=== PATIENT | female | born 1950 | race Caucasian/White ===

== ENCOUNTER → 2024-03-19 08:22 | Outpatient (REF) | payer MEDICARE, OTHER, SELFPAY | LOC: WDC 08:22 | PROVIDERS: ATTENDING PHYSICIAN Obstetrics & Gynecology; FAMILY PHYSICIAN Family Medicine | DX: Z12.31 Encounter for screening mammogram for malignant neoplasm of breast (principal) | CPT/HCPCS: 77063; 77067 ==

== ENCOUNTER → 2024-04-17 11:26 | Outpatient (REF) | payer MEDICARE, OTHER, SELFPAY ==
[2024-04-17 12:27] LABS: Hemoglobin 14.5 g/dL (12.0-16.0); Mean Corpuscular Hgb 30.1 pg (27.0-31.0); Mean Corpuscular Volume 91.3 fL (81.0-99.0); Mean Platelet Volume 10.2 fL (7.4-10.4); Platelet Count 164 10^3/uL (130-400); Red Blood Cell Count 4.82 10^6/uL (4.20-5.40); Red Cell Dist. Width 13.4 % (11.5-14.5); White Blood Cell Count 9.3 10^3/uL (4.8-10.8)
[2024-04-17 12:30] LABS: ALT (SGPT) 30 U/L (0-35); AST (SGOT) 30 U/L (14-36); Albumin 4.5 g/dl (3.5-5.0); Alkaline Phosphatase 67 U/L (38-126); Blood Urea Nitrogen 19 mg/dl (7-17); Calcium 9.9 mg/dl (8.4-10.2); Carbon Dioxide 28 mmol/L (22-30); Chloride 102 mmol/L (98-107); Glucose 94 mg/dl (70-99); HDL Cholesterol 50 mg/dl; LDL Cholesterol, Calculated 93 mg/dl; Potassium 4.2 mmol/L (3.5-5.1); Sodium 137 mmol/L (135-145); Total Bilirubin 0.7 mg/dl (0.2-1.3); Total Cholesterol 162 mg/dl (50-199); Total Protein 7.1 g/dl (6.3-8.2); Triglyceride 97 mg/dl (10-149); Very Low Density Lipoprotein 19 mg/dl (0-30); eGFR > 60.00
[2024-04-17 14:16] LABS: Glycohemoglobin (HgbA1c) 5.6 % (4.0-5.6)
[2024-04-17 15:00] LABS: Band Neutrophils 0 % (0-3); Lymphocytes 64 % (20-51)
[2024-04-17 15:01] LABS: Atypical Lymphocytes 10 %; Monocytes 3 % (2-9); Platelets Checked Yes
[2024-04-17 15:02] LABS: Absolute Neutrophils -Man Diff 2.1 10^3/uL (1.4-6.5); Normal RBC Morphology Yes; Segmented Neutrophils 23 % (42-75); Total Cells Counted 100
== END ==
LOC: REG 11:26
PROVIDERS: ATTENDING PHYSICIAN Family Medicine
DX: R73.9 Hyperglycemia, unspecified (principal); E66.01 Morbid (severe) obesity due to excess calories; Z68.41 Body mass index [BMI] 40.0-44.9, adult; Z13.1 Encounter for screening for diabetes mellitus; Z13.220 Encounter for screening for lipoid disorders; M85.89 Other specified disorders of bone density and structure, multiple sites; R53.82 Chronic fatigue, unspecified; E87.5 Hyperkalemia
CPT/HCPCS: 36415; 80053; 80061; 83036; 85025

== ENCOUNTER 2024-12-13 21:19 | Inpatient (IN) | payer MEDICARE, OTHER, SELFPAY ==
[2024-12-13] VITALS (7 sets, daily range): BP systolic 104–190; BP diastolic 56–121; BMI 38.8
--- NOTE | 2024-12-13 19:42 | EDRN ---
Pt having pain R flank that started around 1330 that is intermittent. Sometimes wraps around to abdomen. No hx similar pain or kidney stones. No pain medication taken. Pt vomited approximately 5-6 times. No nausea now. Pt had chills at home,
did not take her temp. No cough, cp, sob, d/c. Pt notes itching when she urinates and says she went to Dr Coronado regarding this issue and has an appointment with a urogynecologist.
[2024-12-13] MEDS: NSS 1000 IV (19:50)
[2024-12-13 19:56] LABS: Hematocrit 46.4 % (37.0-47.0); Hemoglobin 15.3 g/dL (12.0-16.0); Mean Corp Hgb Conc. 33.0 g/dL (33.0-37.0); Mean Corpuscular Volume 91.5 fL (81.0-99.0); Nucleated Red Blood Cells % 0 %; Platelet Count 114 10^3/uL (130-400); Red Cell Dist. Width 13.6 % (11.5-14.5)
[2024-12-13] MEDS: ZOFRAN 4 MG IV (20:00)
[2024-12-13] MEDS: TORADOL 15 MG IV (20:01)
--- NOTE | 2024-12-13 20:03 | ED.GENMED ---
History of Present Illness
General
Chief Complaint: Flank Pain
Source: patient and spouse
Time Seen by Provider: 12/13/24 19:29
History of Present Illness
History of Present Illness:
74-year-old female presenting to the emergency department for evaluation of sudden onset right flank pain, chills, nausea and vomiting and tactile fever since approximately 2 PM today stating anytime she would go to eat or drink anything she would
proceed to vomit. Pain described to be localized to the right flank somewhat radiating towards the right lower groin area with pain being mostly constant, sharper in nature at times and without any relief although patient notes she did not take
anything for her symptoms prior to arrival. Denies any history of similar. She notes a history of previous cholecystectomy and appendectomy. Social history was otherwise noncontributory.
Past History
Past History
ED Past Medical History: None
ED Past Surgical History: Cholecystectomy, Gynecological, Orthopedic and Other
Social History
Tobacco: Non-smoker
Alcohol: None
Drug: None
Personal:
Living: with family
Review of Systems
Review of Systems
All Other Systems: ROS reviewed and negative except as documented in HPI and ROS
Phy Exam
Physical Exam
Physical Exam:
GENERAL: Alert , in no apparent distress, hot to the touch
EYE: clear conjunctiva b/l
HEAD: NCAT
ENT: o/p clr, mmm.
CARDIAC: Regular rate and rhythm .
LUNGS: Clear breath sounds bilaterally, no acute respiratory distress, no wheezes/rales/rhonchi
ABDOMEN: Soft, without focal tenderness, no r/g, right sided cvat
NEUROLOGICAL: Alert and oriented
SKIN: Warm and dry, skin intact. No rashes
MUSCULOSKELETAL: No edema, well perfused.
PSYCH: Normal and appropriate interaction.
Scores
Heart Failure Risk
Heart Failure Risk Score: Not Applicable
Heart Score for Chest Pain Patients
STEMI patient?: Not applicable
Withdrawal Assessment of Alcohol
Withdrawal Assessment Completed?: Not applicable
Sepsis
Sepsis Screening
Sepsis Assessment: Severe Sepsis
Sepsis Screening: Lactate >2mmol/L
Sepsis Screen
Sepsis Screen: Severe Sepsis
Date: 12/14/24
Time: 00:27
Course
Orders/Labs/Results
Orders:
Orders
12/13/24 Dinner
NPO
Allow oral meds: Yes
Allow clear liquids: Sips of Clears
NPO with Ice Chips: Yes
12/13/24 19:39
Complete Blood Count/With Diff Urgent
Comprehensive Metabolic Panel Urgent
Lactic Acid Q4H
Comment: ON ICE, CANCEL 2ND ORDER IF FIRST LACTIC ACID LEVEL <2
Blood Culture Q20M
ARTURO Source: Blood/Venous
Specimen Description:
Comment: Urgent from separate sites. If patient screens positive for possible sepsis
12/13/24 19:50
0.9% Sodium Chloride 1000 ml [Nss] 1,000 ml IV BOLUS
12/13/24 19:52
Ketorolac [Toradol] 15 mg IV NOW STA
Ondansetron Injectable [Zofran] 4 mg IV NOW STA
12/13/24 19:53
CT Abd/pel Without Iv Or Oral Urgent
Comment:
Reason For Exam: right flank pain, vomiting, prev appy/choley
12/13/24 20:05
Urinalysis Reflex To Culture Urgent
Date Specimen was Collected: 12/13/24
Time Specimen was Collected: 20:03
Urine Microscopic Reflex Cult Urgent
Urine Culture Urgent
ARTURO Source: U
Specimen Description:
Date Specimen was Collected: 12/13/24
Time Specimen was Collected: 20:03
12/13/24 20:12
0.9% Sodium Chloride 1000 ml [Nss] 1,600 ml IV NOW STA
12/13/24 20:22
Blood Culture Q20M
ARTURO Source: Blood/Venous
Specimen Description:
Comment: Urgent from separate sites. If patient screens positive for possible sepsis
12/13/24 20:35
CefTRIAXone [Rocephin] 1,000 mg IV NOW STA
12/13/24 20:42
Sterile Water [Sterile Water For Injection] 10 ml .ROUTE .STK-MED ONE
12/13/24 20:43
HYDROmorphone [Dilaudid] 0.5 mg IV NOW STA
12/13/24 20:49
Admit/Transfer Patient As Directed
Co-Sign Provider:
Level of Care: Inpatient admission
Assign to:: IMU- Intermediate Care
Physician / Group: Julia
Diagnosis: pyelonephritis with obstructing kidney stone
Reason for Hospitalization: pyelonephritis with obstructing kidney stone
Expected length of stay greater than two midnights?: Yes
ELOS- Estimated Length of Stay in days: 2
I certify the patient meets the requirements for IP care: Yes
12/13/24 20:50
Code Status As Directed
Resuscitation Status: Full Code
PRN Pain Medication Management As Directed
May give lesser potent ordered pain med per pt: Yes
preference::
Protocol:: Medication orders for pain may be administered in a
manner that supports deferring to patient preference
when the pt is:
- Requesting an ordered lesser potent pain medication.
Least to most potent pain medications are defined
as: acetaminophen < NSAID < tramadol < opioids
(morphine, oxycodone, hydromorphone).
- Requesting a lesser dose of the same medication IF
ORDERED.
- Requesting a less intrusive route of administration
if both routes are prescribed by the provider (PO <
IV).
12/13/24 22:41
Acetaminophen [Tylenol] 650 mg PO Q4HPRN PRN
Bisacodyl [Dulcolax] 10 mg RECTAL [id number] PRN
Docusate W/Senna [Senokot-S] 1 tablet PO BIDPRN PRN
HYDROmorphone [Dilaudid] 0.5 mg IV Q4HPRN PRN
Ketorolac [Toradol] 15 mg IV Q6HPRN PRN
Lactated Ringers [Lr] 1,000 ml IV 100 mls/hr
Ondansetron Injectable [Zofran] 4 mg IV Q6HPRN PRN
Polyethylene Glycol Powder [Miralax] 17 grams PO DAILYPRN PRN
12/13/24 22:41
Activity As Directed
Activity Level: With Assistance
Intake/ Output As Directed
Frequency: Per unit guidelines
Vital Signs As Directed
Frequency: Per unit guidelines
Pulse Ox/spot Check [RESP] Routine
Quantity: 1
Rx Incentive Spirometry [RESP] Routine
Frequency: q1h while awake
DX Deep Vein Thrombosis Video Routine
12/13/24 23:00
Lactic Acid Q4H
Comment: ON ICE, CANCEL 2ND ORDER IF FIRST LACTIC ACID LEVEL <2
12/14/24 Breakfast
Regular
At Your Request: Full Participation
Basic Metabolic Panel IN AM
Complete Blood Count/No Diff IN AM
12/14/24 18:00
Enoxaparin Sodium [Lovenox] 40 mg SC QPM
12/14/24 20:00
CefTRIAXone [Rocephin] 1,000 mg IV Q24H
Abnormal Lab Results
12/13/24 12/13/24
19:39 20:05
WBC 11.1 H 10^3/uL
(4.8-10.8)
Plt Count 114 L 10^3/uL
(130-400)
Abs Immat Gran (auto) 0.1 H 10^3/uL
(0-0.05)
Absolute Neuts (auto) 7.7 H 10^3/uL
(1.4-6.5)
Immature Gran % 1.0 H %
(0-0.5)
Monocytes % 0.6 L %
(1.7-9.3)
Chloride 109 H mmol/L
(98-107)
Carbon Dioxide 21 L mmol/L
(22-30)
BUN 19 H mg/dl
(7-17)
Glucose 171 H mg/dl
(70-99)
Lactic Acid 3.5 H mmol/L
(0.7-2.0)
Calcium 10.4 H mg/dl
(8.4-10.2)
Urine Ketones 1+ A
(Negative)
Ur Occult Blood Reflex 2+ A
(Negative)
Urine RBC 16-20 A /HPF
(0-2)
Urine Bacteria (Reflex) Many A
(Negative)
Urine Glucose 1+ A
(Negative)
Urine Albumin (Reflex) 2+ A
(Neg - Trace)
12/13/24 19:39
12/13/24 19:39
Vital Signs
Initial and Last Documented VS:
Initial Vital Signs
Temp Pulse Resp BP Pulse Ox
100.6 F H 114 26 190/121 96
12/13/24 18:52 12/13/24 18:52 12/13/24 18:52 12/13/24 18:52 12/13/24 18:52
Last Documented Vital Signs
Temp Pulse Resp BP Pulse Ox
98.6 F 102 21 103/59 95
12/14/24 00:04 12/14/24 00:00 12/14/24 00:00 12/14/24 00:00 12/14/24 00:04
MDM/Problems Addressed
Differential Diagnosis Includes:
Renal/ureteral colic
kidney stone
Pyelonephritis
cystitis
Shingles
Patient status post cholecystectomy so doubt cholelithiasis/choledocholithiasis
Pancreatitis
viral syndrome
MDM/Problems Addressed:
74-year-old female presented to the ER with sudden onset of right flank pain fevers, nausea and vomiting. Patient febrile and tachycardic here. Overall patient is fairly well-appearing. Sepsis workup initiated. Symptom control with Toradol and
Zofran as well as fluids. CT scan ordered. Disposition pending.
*Radiology
Radiology exam reviewed: radiology read reviewed
*Pulse Oximetry
SaO2: 96
Oxygen Mode of Delivery: Room air
Patient hypoxic: no
*Assignment Desk Assistant Interpretation
Rate: tachycardiac
Heart Rate: 110
Rhythm: sinus
*Critical Care Note
Total Time (30-74mins, 75-104mins- exclusive of procedures): 30
comment:
Critical care statement: A total of 30 minutes of critical care time was provided for this patient. This includes management of unstable vital signs, evaluation of the patient at bedside, reviewing the patient's pertinent medical records, discussion
with consultants, review of old EKGs and review of pertinent medical records. This time with separate from time utilized to perform the aforementioned documented procedures
Patient Management
Discussion with other providers: Hospitalist and Visual Basic Developer
Escalation/DeEscalation of care consider admission/obs:
Patient CT scan shows a 0.8 cm stone at the level of the UPJ with concern for perinephric stranding. Based off patient's presentation with fever, leukocytosis and lactic acidosis I do have concern for pyelonephritis/infected kidney stone/urosepsis.
I notified urology who will come evaluate the patient with plan to take to the OR. Advised to keep the patient NPO. Hospitalist team is aware and accepts for continued evaluation and treatment following completion of patient in the OR.
ED Attending Note
-
Portions of this chart may have been created with voice recognition software.� Occasional wrong word or��sound alike� substitutions may have occurred due to the inherent limitations of voice recognition software.
Discharge Plan
Departure
Patient Disposition: Admit
Date of Disposition: 12/13/24
Time of Disposition: 20:36
Presentation/result/management discussed w/ accepting MD/DO: Hospitalist
Discharge Problem:
Kidney stone on right side, Acute pyelonephritis
Interventions
Interventions:
*Risk Screen - Suicide Last Done: 12/13/24 18:52
*General Assessment Last Done: 12/13/24 18:52
*Neglect/Abuse Screening Last Done: 12/13/24 18:52
*ED- Fall Risk Assessment Last Done: 12/13/24 19:42
*Nursing Disposition Last Done: 12/13/24 21:55
AC-Fbwaxm-Lkbmtjqnmc Assessment Last Done: 12/13/24 19:52
ED-Female Genitourinary Assessment Last Done: 12/13/24 19:52
Discharge Date and Time
Discharge Date/Time: 12/13/24 21:55
[2024-12-13 20:16] LABS: Urine Character Clear (Clear)
[2024-12-13 20:17] LABS: ALT (SGPT) 25 U/L (0-35); AST (SGOT) 34 U/L (14-36); Albumin 5.0 g/dl (3.5-5.0); Alkaline Phosphatase 69 U/L (38-126); Blood Urea Nitrogen 19 mg/dl (7-17); Calcium 10.4 mg/dl (8.4-10.2); Carbon Dioxide 21 mmol/L (22-30); Chloride 109 mmol/L (98-107); Estimated Creatinine Clearance 53 ml/min; Glucose 171 mg/dl (70-99); Potassium 4.2 mmol/L (3.5-5.1); Sodium 141 mmol/L (135-145); Total Protein 8.1 g/dl (6.3-8.2); eGFR > 60.00
[2024-12-13 20:22] LABS: Urine Squamous Cell 0-2 /LPF (Few)
[2024-12-13 20:23] LABS: Urine Red Blood Cell 16-20 /HPF (0-2); Urine White Cell 0-2 /HPF (0-5)
[2024-12-13] MEDS: NSS 1600 ML IV (20:28)
--- NOTE | 2024-12-13 20:39 | EDRN ---
Pt informed she is now NPO, may go to OR tonight. This RN attempted second iv access without success. Scottie Lomeli RN able to insert second iv acces L ACF and second L NS moved to this site for more rapid infusion.
--- NOTE | 2024-12-13 20:42 | HPS.HSE ---
Family Physician
-
Family Physician: NOT KNOW UNKNOWN - PT DOES
Chief Complaint
-
Flank pain
History of Present Illness
This is a 74-year-old female with past medical history significant for osteoporosis, and on calcium supplementation presents to the emergency department with chills flank pain nausea vomiting.
Patient reported that she was in usual state of health up until this afternoon after having a small lunch at [employer] conference. She immediately developed some abdominal discomfort and nausea and she came home. At home she started noticing
right-sided flank pain associated with ongoing nausea and then she started having emesis that was nonbloody and nonbilious. She denies any diarrhea. Patient and spouse reported that she started to have chills which indicated that she might have a
fever. She was unable to tolerate any p.o. Any attempted sips of liquid resulted in vomiting. She reports prior history of gallstones. Denies any history of recurrent UTIs or kidney stones.
In the Emergency Department the patient had a Tmax of 100.6, blood pressure was 180/100 with a pulse of 114 and she was satting 98% on room air.
White count of 11 hemoglobin of 15.3 and plate count of 114. Her electrolytes BUN and creatinine were all normal.
CT of the abdomen pelvis shows approximate 0.8 cm calculus at the right ureteropelvic junction with right renal collecting system dilation and moderate right perinephric stranding.
Medical History
Past Medical History
Past Medical History: Reports Other
Past Surgical History: Reports Cholecystectomy, , Gynocological (Right ovarian cystectomy) and Other (Hernia repair)
Social History
Tobacco: Non-smoker
Alcohol: None
Drug: None
Family History
Family History: Not pertinent
Allergies / Home Medications
Allergies reflects when Allergies were last updated in [employer].
Home Medications with original date entered in [employer]
Allergy/Medication List:
Allergies
Allergy/AdvReac Type Severity Reaction Status Date / Time
bacitracin (From Neosporin Allergy Rash Verified 12/13/24 19:47
([id number]))
formaldehyde Allergy Unknown Verified 12/13/24 19:47
latex (Latex) Allergy 'picky Verified 12/13/24 19:47
sensation
in face'
lavender (Lavandula Allergy 'picky' Verified 12/13/24 19:47
angustifolia)
morphine Allergy Unknown Verified 12/13/24 19:47
neomycin (From Neosporin Allergy Rash Verified 12/13/24 19:47
([id number]))
polymyxin B (From Neosporin Allergy Rash Verified 12/13/24 19:47
([id number]))
Sulfa (Sulfonamide Allergy Hives Verified 12/13/24 19:47
Antibiotics)
bananas Allergy Rash Uncoded 12/13/24 19:47
Home Medications
PreserVision AREDS 1 tab PO BID 12/13/24
alendronate 70 mg tablet 70 mg PO QWEEK 12/13/24
calcium 500 mg (as carbonate)-vitamin D3 3.125 mcg (125 unit) tablet 1 tab PO DAILY 12/13/24
Review of Systems
-
Constitutional: Reports No Symptoms
EENT: Reports No Symptoms
Respiratory: Reports No Symptoms
Cardiac: Reports No Symptoms
Abdomen/GI: Reports No Symptoms
: Reports Flank Pain
Musculoskeletal: Reports No Symptoms
Skin: Reports No Symptoms
Neurological: Reports No Symptoms
Endocrine: Reports No Symptoms
Hematologic/Lymphatic: Reports No Symptoms
Psych: Reports No Symptoms
Physical Exam
Vital Signs
Vital Signs
Temp Pulse Resp BP Pulse Ox
98.7 F 114 16 190/121 96
12/13/24 20:33 12/13/24 20:33 12/13/24 20:33 12/13/24 18:52 12/13/24 20:08
Physical Exam
General: Well Developed, Well Nourished and No Apparent Distress
HEENT: NormoCephalic, Moist mucous membranes and Atraumatic
Respiratory: Clear
Cardiac: S1/S2 and Regular Rhythm; No Murmur or Rub
GI: Soft, Non Tender, Non Distended and Normal Bowel Sounds; No Organomegaly
Rectal: Deferred by Provider
Musculoskeletal: No Clubbing, No Cyanosis and No Edema
Skin: No Rash
Neuro: Nonfocal/grossly intact
Laboratory Results
-
12/13/24 19:39
12/13/24 19:39
Laboratory Results
Lactic Acid 3.5 mmol/L (0.7-2.0) H 12/13/24 19:39
Total Bilirubin 1.1 mg/dl (0.2-1.3) 12/13/24 19:39
AST 34 U/L (14-36) 12/13/24 19:39
ALT 25 U/L (0-35) 12/13/24 19:39
Alkaline Phosphatase 69 U/L (38-126) 12/13/24 19:39
Data Reviewed
-
CT Scan: Report Reviewed by me
Lab Data: Labs Reviewed by me
Old Records: Reviewed
Impression/Plan
-
IMPRESSION:
74-year-old female with right obstructing ureterolithiasis with likely infected stone and pyelonephritis with sepsis but no shock. Fever 200.6 here and tachycardic. UA with bacteria and blood but no nitrites or leukocyte esterase WBCs. She does
have mild peripheral leukocytosis.
PLAN:
Infected Urolithiasis - Sepsis without shock likely going to OR for stenting
- admit to IMU
- NPO
- blood and urine cultures sent
- IV ceftriaxone started
- s/p 30 cc/kg bolus, continue maintenance fluids for now
- can initiate regular diet after OR
- pain control, antiemetics and antipyretics
DVT PPX - lovenox starting tomorrow
Code status - Full Code
[2024-12-13] MEDS: ROCEPHIN 1000 MG IV (20:45)
[2024-12-13] MEDS: DILAUDID 0.5 MG IV (20:50)
--- NOTE | 2024-12-13 21:27 | CONS.URO ---
Consultation
-
Date/Time Consultation Requested: 12/13/24 2100
Date/Time Consultation Performed: 2127
Requesting Provider: ED
Performing Provider: Fortunato
Reason for Consultation: urosepsis, obstructing right ureteral stone
Medical History
History of Present Illness
74F presenting w/ abdominal discomfort and nausea starting this afternoon.
New onset of right flank pain w/ emesis.
Fevers and chills began later in afternoon.
Denies h/o rUTIs or nephrolithiasis.
In ED => tachycardic to 120s, WBC >11, LA 3.5, and tachypneic.
CT imaging => 8 mm right UPJ stone w/ obstructive uropathy and moderate right perinephric stranding.
Past Medical History
Past Medical History: Other (osteoporosis)
Past Surgical History: Cholecystectomy, , Gynocological (right ovarian cystectomy) and Other (hernia repair)
Social History
Tobacco: Non-smoker
Alcohol: None
Drug: None
Personal:
Living: With Family
Family History
Family History: Reviewed & Not Pertinent
Allergies/Home Medications
Allergies
Allergy/AdvReac Type Severity Reaction Status Date / Time
bacitracin (From Neosporin Allergy Rash Verified 12/13/24 19:47
([id number]))
formaldehyde Allergy Unknown Verified 12/13/24 19:47
latex (Latex) Allergy 'picky Verified 12/13/24 19:47
sensation
in face'
lavender (Lavandula Allergy 'picky' Verified 12/13/24 19:47
angustifolia)
morphine Allergy Unknown Verified 12/13/24 19:47
neomycin (From Neosporin Allergy Rash Verified 12/13/24 19:47
([id number]))
polymyxin B (From Neosporin Allergy Rash Verified 12/13/24 19:47
([id number]))
Sulfa (Sulfonamide Allergy Hives Verified 12/13/24 19:47
Antibiotics)
bananas Allergy Rash Uncoded 12/13/24 19:47
Home Medications
�Medication �Instructions �Recorded �Confirmed �Type
CoQ-10 25 mg PO QID 12/13/24 12/13/24 History
PreserVision AREDS 1 tab PO BID 12/13/24 12/13/24 History
Resq 1,250 mg PO DAILY 12/13/24 12/13/24 History
alendronate 70 mg tablet 70 mg PO QWEEK 12/13/24 12/13/24 History
calcium 500 mg (as 1 tab PO DAILY 12/13/24 12/13/24 History
carbonate)-vitamin D3 3.125 mcg
(125 unit) tablet
cholecalciferol (vitamin D3) 25 25 mcg PO DAILY 12/13/24 12/13/24 History
mcg (1,000 unit) tablet (Vitamin
D3)
cranberry fruit 450 mg tablet 900 mg PO DAILY 12/13/24 12/13/24 History
(cranberry)
cdeljykwxihr-jzoqppxs-xjnwgq tablet 1 tab PO DAILY 12/13/24 12/13/24 History
red yeast rice 600 mg tablet 2,400 mg PO DAILY 12/13/24 12/13/24 History
Review of Systems
-
History Source: Patient and Family
A 12 point Review of Systems was completed except as noted: Yes
Physical Exam
Vital Signs
Vital Signs
Temp Pulse Resp BP Pulse Ox
98.7 F 109 26 115/70 96
12/13/24 20:33 12/13/24 21:00 12/13/24 21:00 12/13/24 21:00 12/13/24 20:08
Lab / Testing Results
Laboratory Results
12/13/24 19:39
12/13/24 19:39
Physical Exam
General: Well Developed and Well Nourished
HEENT: Normocephalic and Anicteric
Respiratory: Non Labored Respirations
Cardiac: Regular Rhythm
Breast: Deferred by me
GI: Soft, Non Tender and Non Distended
Rectal: Deferred by Provider
Genito-urinary: Clear Urine
Musculoskeletal: No Edema
Skin: Warm and Dry
Neuro: AO x 3, No Motor Deficits and Nonfocal/Grossly Intact
Hematologic/Lymphatic: No Lymphadenopathy
Psych: Calm and Intact Judgement
Assessment / Plan
-
Urosepsis - evolving
Fevers
Obstructing right UPJ stone
VS: tachycardic, tachypneic
WBC 11.1
Cr WNL
LA 3.5
UA +RBCs, many bacteria
CTAP w/o IV contrast => obstructing 8 mm right UPJ stone w/ hydronephrosis and perinephric stranding
Detailed discussion including SDM had w/ patient and spouse regarding clinical picture of urosepsis w/ obstructive uropathy.
Reviewed risks, benefits, alternatives, and potential complications of cystoscopy/stent placement including but not limited to bleeding, ureteral/bladder injury, need for additional emergent procedures/surgeries.
- To OR emergently for cytso + right stent placement
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
- Surgical consent to be signed in preop holding
- IMU bed available post-op per Hospitalist
D/w patient and spouse.
D/w ED.
D/w Hospitalist.
Data Reviewed
-
Total Time Spent with Patient (in minutes): 25
CT Scan: Image personally visualized and interpreted, Report Reviewed by Me, Discussed with Physician, Discussed with Patient and Discussed with Family
Lab Data: Labs Reviewed, Discussed with Physician, Discussed with Patient and Discussed with Family
Old Records: Reviewed
--- NOTE | 2024-12-13 21:44 | EDRN ---
Report given to OR
--- NOTE | 2024-12-13 22:29 | W.IMMPOSTOP ---
Surgical Immed Post Op Note
-
Primary Surgeon: Fortunato
Pre-op Diagnosis: Urosepsis, obstructing right UPJ stone
Post-op Diagnosis: Same
Procedure Performed: cystoscopy, right RGP + stent placement
Anesthesia Type: LMA
Specimen / Cultures: Right kidney UCx/None
Estimated Blood Loss: Negligible
Drains: 6Fr x 22 cm JJ right ureteral stent
Complications: None
Operative Findings:
Brisk efflux of malodorous purulent urine from right UO upon wire decompression and stent placement - intraop UCx sent from right kidney.
Final KUB and cystoscopy confirming excellent stent positioning.
Spouse (Haviland) updated post-op.
[2024-12-13] MEDS: LR 1000 IV (23:39)
[2024-12-14] VITALS (14 sets, daily range): BP systolic 90–143; BP diastolic 52–73; BMI 27.4; BMI 27.6
--- NOTE | 2024-12-14 00:57 | PTCARENOTE ---
verbal report received from YEVGENIY Woody. Pt arrived via bed from PACU with at bedside. Pt aaox3. sinus tach on monitor, hr 100-110s. SpO2 95% on RA. admission complete. VS and assessment as documented. LR infusing @ 100 mL/hr. Pt resting in
bed with call herrera in reach.
[2024-12-14 05:16] LABS: Hematocrit 39.2 % (37.0-47.0); Hemoglobin 12.7 g/dL (12.0-16.0); Mean Corp Hgb Conc. 32.4 g/dL (33.0-37.0); Mean Corpuscular Volume 92.0 fL (81.0-99.0); Platelet Count 106 10^3/uL (130-400); Red Cell Dist. Width 13.9 % (11.5-14.5)
[2024-12-14 05:39] LABS: Blood Urea Nitrogen 19 mg/dl (7-17); Calcium 8.9 mg/dl (8.4-10.2); Carbon Dioxide 22 mmol/L (22-30); Chloride 113 mmol/L (98-107); Estimated Creatinine Clearance 62 ml/min; Glucose 139 mg/dl (70-99); Potassium 4.0 mmol/L (3.5-5.1); Sodium 140 mmol/L (135-145); eGFR > 60.00
--- NOTE | 2024-12-14 06:50 | W.PN.URO.CBU ---
Today's Communication / Plan
-
Continue IV antibiotics pending Cx S/S
Plan for definitive outpatient stone surgery in 2-3 weeks
D/w spouse (Vick).
Assessment / Plan
-
Urosepsis
Right pyonephrosis
Obstructing right UPJ stone
12/13: s/p emergent cysto + right RGP/stent placement
WBC 32 (as expected s/p decompression of infected right renal collecting system)
Cr WNL
UCx pending
BCx pending
Diagnosis
-
Date of Service: December 14, 2024
-
Patient Diagnosis:
Urosepsis
Right pyonephrosis
Obstructing right UPJ stone
Post Op Day:
12/13: s/p emergent cysto + right RGP/stent placement
Subjective
-
Voiding w/o difficulty.
Advanced to regular diet post-op.
Objective
-
Vital Signs
Temp Pulse Resp BP Pulse Ox
98.4 F 90 16 96/55 93
12/14/24 03:23 12/14/24 06:00 12/14/24 06:00 12/14/24 06:00 12/14/24 06:00
Intake and Output
12/13/24 12/14/24 12/15/24
06:59 06:59 06:59
Intake Total 1380 / 1380
Balance 1380 / 1380
Intake:
Oral fluids 480 / 480
IV fluids (Total) 900 / 900
normosol 200 / 200
Other:
Number of approximated MODERATE 1
amounts of urine
Laboratory Results
12/14/24 04:52
12/14/24 04:52
Physical Exam
-
General - well developed, well nourished, no acute distress
Abdomen - soft, non-tender, no CVAT
Skin - warm & dry with no rash
Neuro - AOx3, no motor deficits
Extremities - no clubbing, no cyanosis, no edema
Care Review
Data Reviewed
Discussed with: Hospitalist and Family
CT Scan: Report Pers Reviewed and Image Pers Reviewed
Total Time Spent with Patient (in minutes): 25
--- NOTE | 2024-12-14 09:43 | W.PN.HOSP.TC ---
Addendum entered and electronically signed by Dean Yoo MD 12/14/24 09:44:
#reactive thrombocytopenia
follow CBC
Original Note:
Today's Communication/Plan
-
see PN
Assessment / Plan
Assessment / Plan
74yo F with PMHx of osteoporosis, HLD came with R flank pain, nausea and vomiting with burning during urination started on the day of admisison, CT abd showed 0.8 cm calculus at the right ureteropelvic junction and R pyelonephritis, had
A/P:
#Sepsis on admission (leukocytosis, nausea, vomiting) 2/2 pyelonephritis complicated by bacteremia with UPJ obstructing stone
Ceftriaxone, pending Ucx
repeat Bcx
Urology: s/p cystoscopy, right RGP + stent placement on 12/14/24 - purulent output from kidney
Pain mgmt
#Diverticulosis w/o diverticulitits
#moderate umbilical hernia
#simple parapelvic renal cysts
high fiber diet
outpatient f/u with PCP
DVT ppx lovenox
Full code
I have spent at least 57min reviewing chart, test results, communication with consultants and family and providing direct patient care
Anticipated Discharge: 24 - 48 hours
Subjective/Interval History
-
Date of Service: December 14, 2024
Objective Data
-
Labs:
Laboratory Results
12/14/24
04:52
WBC 32.2 H
Hgb 12.7
Hct 39.2
Plt Count 106 L
Sodium 140
Potassium 4.0
Chloride 113 H
Carbon Dioxide 22
BUN 19 H
Creatinine 0.9
Glucose 139 H
Calcium 8.9 D
Vital Signs:
Vital Signs
Temp Pulse Resp BP Pulse Ox
98.4 F 94 19 117/67 96
12/14/24 03:23 12/14/24 08:00 12/14/24 08:00 12/14/24 08:00 12/14/24 08:00
I&O
12/13/24 12/14/24 12/15/24
06:59 06:59 06:59
Intake Total 1380 / 1380
Balance 1380 / 1380
Review of Systems
-
History Source: Patient
All other systems: Reviewed and negative
Genitourinary: Reports Dysuria
Physical Exam
-
General: No Apparent Distress and Comfortable
HEENT: Normocephalic
Respiratory: Clear to Auscultation
Cardiac: Regular Rhythm
GI: Soft, Nontender and Nondistended
Genito-urinary: No Costovertebral Tender
Neuro: Awake, Alert, Oriented and AO x 3
Psych: Calm
[2024-12-14] MEDS: LR 1000 IV (11:32)
--- NOTE | 2024-12-14 12:04 | PTCARENOTE ---
Patient AOx3. VSS. NSR on monitor. R ureteral stent. Urinating appropriately. Tolerating oral diet. Independent in room. IVF running per order. Call herrera within reach, bed in lowest position, and bed of wheels locked.
--- NOTE | 2024-12-14 13:26 | PTCARENOTE ---
Verbal report given to 3W RN Saige. Patient transported via patient transport. Patient belongings transferred with patient.
[2024-12-14] MEDS: STERILE WATER FOR INJECTION 10 ML IV (19:33)
[2024-12-14] MEDS: FLUSH (NSS) 1 FLUSH IV (19:34)
[2024-12-14] MEDS: ROCEPHIN 1000 MG IV (19:34)
[2024-12-15 06:14] LABS: ALT (SGPT) 24 U/L (0-35); AST (SGOT) 22 U/L (14-36); Albumin 3.4 g/dl (3.5-5.0); Alkaline Phosphatase 56 U/L (38-126); Blood Urea Nitrogen 24 mg/dl (7-17); Calcium 8.7 mg/dl (8.4-10.2); Carbon Dioxide 24 mmol/L (22-30); Chloride 112 mmol/L (98-107); Estimated Creatinine Clearance 62 ml/min; Glucose 93 mg/dl (70-99); Potassium 4.0 mmol/L (3.5-5.1); Sodium 142 mmol/L (135-145); Total Protein 5.8 g/dl (6.3-8.2); eGFR > 60.00
[2024-12-15 06:25] LABS: Hematocrit 38.6 % (37.0-47.0); Hemoglobin 12.4 g/dL (12.0-16.0); Mean Corp Hgb Conc. 32.1 g/dL (33.0-37.0); Mean Corpuscular Volume 91.9 fL (81.0-99.0); Platelet Count 118 10^3/uL (130-400); Red Cell Dist. Width 14.3 % (11.5-14.5)
[2024-12-15 07:33] VITALS: BP 132/73
[2024-12-15 08:42] LABS: Absolute Neutrophils -Man Diff 18.3 10^3/uL (1.4-6.5); Normal RBC Morphology Yes; Platelets Checked Yes
[2024-12-15 08:43] LABS: Total Cells Counted 100
[2024-12-15] MEDS: ROCEPHIN 1000 MG IV (10:03)
[2024-12-15] MEDS: STERILE WATER FOR INJECTION 10 ML IV (10:03)
--- NOTE | 2024-12-15 10:23 | W.PN.HOSP.TC ---
Today's Communication/Plan
-
pending improvement in leukocytosis
Increase Rocephin to 2g
Assessment / Plan
Assessment / Plan
74yo F with PMHx of osteoporosis, HLD came with R flank pain, nausea and vomiting with burning during urination started on the day of admisison, CT abd showed 0.8 cm calculus at the right ureteropelvic junction and R pyelonephritis, had
A/P:
#Sepsis on admission (leukocytosis, nausea, vomiting) 2/2 pyelonephritis complicated by bacteremia with UPJ obstructing stone
Ceftriaxone, pending Ucx
repeat Bcx NTD
Urology: s/p cystoscopy, right RGP + stent placement on 12/14/24 - purulent output from kidney
Pain mgmt
#Diverticulosis w/o diverticulitis
#moderate umbilical hernia
#simple parapelvic renal cysts
high fiber diet
outpatient f/u with PCP
DVT ppx lovenox
Full code
I have spent at least 57min reviewing chart, test results, communication with consultants and family and providing direct patient care
Anticipated Discharge: 24 - 48 hours
Subjective/Interval History
-
Date of Service: December 15, 2024
Objective Data
-
Labs:
Laboratory Results
12/15/24
05:09
WBC 30.1 H
Hgb 12.4
Hct 38.6
Plt Count 118 L
Sodium 142
Potassium 4.0
Chloride 112 H
Carbon Dioxide 24
BUN 24 H
Creatinine 0.9
Glucose 93
Calcium 8.7
Total Bilirubin 0.4
AST 22
ALT 24
Alkaline Phosphatase 56
Vital Signs:
Vital Signs
Temp Pulse Resp BP Pulse Ox
98.0 F 87 17 132/73 97
12/15/24 07:33 12/15/24 07:33 12/15/24 07:33 12/15/24 07:33 12/15/24 07:33
I&O
12/14/24 12/15/24 12/16/24
06:59 06:59 06:59
Intake Total 1380 / 1380 2220 / 2220
Balance 1380 / 1380 2220 / 2220
Review of Systems
-
History Source: Patient
All other systems: Reviewed and negative
Physical Exam
-
General: No Apparent Distress
Neuro: Awake, Alert, Oriented and AO x 3
Psych: Calm
--- NOTE | 2024-12-15 10:54 | CM ---
Addendum entered by Radha Taveras 12/15/24 10:56:
CM consult completed-Advanced Directives
Information given to patient
Original Note:
Patient seen at bedside with
IA completed
Lives in 2 story home with , 2 NAJMA, flight stairs to bedroom, full bath on 1st & 2nd floor
PLOF: Independent
Denies DME
Denies VN/Rehab
PCP: Jessi Coronado
Pharmacy: [address]
PLAN: home, no needs anticipated
[2024-12-15 15:24] VITALS: BP 135/73
[2024-12-15 23:01] VITALS: BP 139/76
--- NOTE | 2024-12-16 03:12 | DOWNTIME ---
There was a [facility] Client [employer] Operator Downtime on 12/16/2024 from 0100 to 12/16/2024 at 0235. Downtime documentation of patient's care, including medication administrations, has been reconciled in the electronic record per guidelines. Refer to the
patient's paper chart under the miscellaneous tab to see printed paper medication records and downtime forms.
--- NOTE | 2024-12-16 05:36 | PTCARENOTE ---
Assumed care of pt at 0300. Assessment unchanged from previous. Observed w/eyes closed, even respirations. Call herrera w/in reach, able to make needs known.
[2024-12-16 06:19] LABS: Hematocrit 37.2 % (37.0-47.0); Hemoglobin 12.1 g/dL (12.0-16.0); Mean Corp Hgb Conc. 32.5 g/dL (33.0-37.0); Mean Corpuscular Volume 91.4 fL (81.0-99.0); Platelet Count 124 10^3/uL (130-400); Red Cell Dist. Width 14.2 % (11.5-14.5)
[2024-12-16 06:42] LABS: Absolute Neutrophils -Man Diff 10.0 10^3/uL (1.4-6.5); Macrocytosis 1+; Normal RBC Morphology No; Platelets Checked Yes; Total Cells Counted 100
[2024-12-16 07:00] VITALS: BP 127/74
--- NOTE | 2024-12-16 08:46 | W.PN.UPDATE ---
Update Note
Progress Note Update
E. Coli urosepsis
Bacteremia
Right pyonephrosis
Obstructing right UPJ stone
12/13: s/p emergent cysto + right RGP/stent placement
Continue IV antibiotics pending BCx S/S
Treatment course for bacteremia on discharge
F/U in 2 weeks for preop visit to schedule definitive outpatient stone surgery
D/w Hospitalist.
Urology signing off.
--- NOTE | 2024-12-16 09:16 | W.PN.HOSP.TC ---
Today's Communication/Plan
-
dc
Assessment / Plan
Assessment / Plan
74yo F with PMHx of osteoporosis, HLD came with R flank pain, nausea and vomiting with burning during urination started on the day of admisison, CT abd showed 0.8 cm calculus at the right ureteropelvic junction and R pyelonephritis, had cystoscopy,
right RGP + stent placement on 12/14/24 with purulent output from kidney. Initial Bcx and Ucx grew pansensitive E.coli. Bandemia resolved, leukocytosis improved. Reasonable to d/c home with 11 more days of cefdinir and follow up by Urologist for
stone and stent extraction. Medically stable for d/c
A/P:
#Sepsis on admission (leukocytosis, nausea, vomiting) 2/2 pyelonephritis complicated by bacteremia with UPJ obstructing stone
Ceftriaxone
repeat Bcx NTD
Urology: s/p cystoscopy, right RGP + stent placement on 12/14/24 - purulent output from kidney
Pain mgmt
#Diverticulosis w/o diverticulitis
#moderate umbilical hernia
#simple parapelvic renal cysts
high fiber diet
outpatient f/u with PCP
DVT ppx lovenox
Full code
I have spent at least 37min reviewing chart, test results, communication with consultants and family and providing direct patient care
Anticipated Discharge: Today
Subjective/Interval History
-
Date of Service: December 16, 2024
Objective Data
-
Labs:
Laboratory Results
12/16/24
05:42
WBC 17.9 H
Hgb 12.1
Hct 37.2
Plt Count 124 L
Vital Signs:
Vital Signs
Temp Pulse Resp BP Pulse Ox
98.4 F 89 19 127/74 96
12/16/24 07:00 12/16/24 07:00 12/16/24 07:00 12/16/24 07:00 12/16/24 07:00
I&O
12/15/24 12/16/24 12/17/24
06:59 06:59 06:59
Intake Total 2219 690 / 690
Balance 2219 690 / 690
Review of Systems
-
History Source: Patient
All other systems: Reviewed and negative
Physical Exam
-
General: No Apparent Distress
Neuro: Awake, Alert, Oriented and AO x 3
Psych: Calm
--- NOTE | 2024-12-16 09:24 | W.DCSUMMARY ---
Discharge Summary
Discharge Data
Date of Admission: 12/13/24
Date of Discharge: 12/16/24
-
Pending Results: No
Hospital Course
74yo F with PMHx of osteoporosis, HLD came with R flank pain, nausea and vomiting with burning during urination started on the day of admisison, CT abd showed 0.8 cm calculus at the right ureteropelvic junction and R pyelonephritis, had cystoscopy,
right RGP + stent placement on 12/14/24 with purulent output from kidney. Initial Bcx and Ucx grew pansensitive E.coli. Bandemia resolved, leukocytosis improved. Reasonable to d/c home with 11 more days of cefdinir and follow up by Urologist for
stone and stent extraction. Medically stable for d/c since remained afebrile for >24h befoe d/c and repeated Bcx NTD
I have spent at least 37min reviewing chart, test results, communication with consultants and family and providing direct patient care
Patient was managed for:
#Sepsis on admission (leukocytosis, nausea, vomiting) 2/2 pyelonephritis complicated
#Diverticulosis w/o diverticulitis
#moderate umbilical hernia
#simple parapelvic renal cysts
#HLD
Discharge Plan
-
Patient Disposition: Home (Routine Discharge)
Discharge Diagnosis/Procedures: Pyelonephritis
Diet: Other diet
Additional Diets: High fiber
Activity: No restrictions
Driving Restrictions: As prior to admission
Referrals:
Cory Bucio MD [Active, Urology]
Referral Note: Please follow up with Dr. Bucio in 2 weeks for a preop visit to discuss/schedule your outpatient kidney stone surgery.
Jessi Coronado MD [Family Provider, Family Practice]
Prescriptions:
New
cefdinir 300 mg capsule
300 mg PO BID Qty: 22 0RF
Probiotic 3 billion cell capsule
3,000 mmu cells PO DAILY Qty: 30 0RF
Continued
alendronate 70 mg Tablet
70 mg PO QWEEK
calcium carbonate-vitamin D3 500 mg-3.125 mcg (125 unit) Tablet
1 tab PO DAILY
PreserVision AREDS
1 tab PO BID
qdglhjrgbjaa-[id number] Tablet
1 tab PO DAILY
cholecalciferol (vitamin D3) [Vitamin D3] 25 mcg (1,000 unit) Tablet
25 mcg PO DAILY
red yeast rice 600 mg Tablet
2,400 mg PO DAILY
cranberry 450 mg Tablet
900 mg PO DAILY
CoQ-10
25 mg PO QID
Resq
1,250 mg PO DAILY
Discharge Orders:
Discharge Patient (As Directed); Ordered 12/16/24
Ordered By: Dean Yoo
Discharge Date and Time
Print Language: PASHTO
[2024-12-16] MEDS: ROCEPHIN 2000 MG IV (10:02)
[2024-12-16] MEDS: STERILE WATER FOR INJECTION 20 ML IV (10:03)
--- NOTE | 2024-12-16 10:32 | CM ---
Patient seen at bedside with
IMM explained & signed. In chart
plan: discharge home today, no needs
to transport
[2024-12-16 10:52] VITALS: BP 164/91
== END 2024-12-16 11:22 | disposition home or self-care (01) | DRG 854 ==
LOC: 3 WEST ACU 21:19
PROVIDERS: Physician Assistant Medical; ADMITTING PHYSICIAN Internal Medicine; ATTENDING PHYSICIAN Internal Medicine; CONSULT PHYSICIAN Surgery; EMERGENCY PHYSICIAN Student in an Organized Health Care Education/Training Program; FAMILY PHYSICIAN Family Medicine
PROC: BT1D1ZZ Fluoroscopy of Right Kidney, Ureter and Bladder using Low Osmolar Contrast (ICD-10-PCS; 2024-12-13)
PROC: 0T768DZ Dilation of Right Ureter with Intraluminal Device, Via Natural or Artificial Opening Endoscopic (ICD-10-PCS; 2024-12-13)
DX: A41.51 Sepsis due to Escherichia coli [E. coli] (principal); N13.6 Pyonephrosis; K57.30 Diverticulosis of large intestine without perforation or abscess without bleeding; K42.9 Umbilical hernia without obstruction or gangrene; N28.1 Cyst of kidney, acquired; E78.5 Hyperlipidemia, unspecified; M81.0 Age-related osteoporosis without current pathological fracture; D69.6 Thrombocytopenia, unspecified
CPT/HCPCS: 74176; 74420; 76000; 80048; 80053; 81003; 81015; 83605; 85025; 85027; 87040; 87077; 87086; 87154; 87186; 87205; 96361; 96374; 96375; 99291; C1769; C2617

== ENCOUNTER → 2024-12-30 11:37 | Outpatient (REF) | payer MEDICARE, OTHER, SELFPAY ==
[2024-12-30 19:24] LABS: Urine Character Cloudy (Clear)
[2024-12-30 19:43] LABS: Urine Red Blood Cell >100 /HPF (0-2); Urine Squamous Cell 0-2 /LPF (Few)
== END ==
LOC: CLAB 11:37
PROVIDERS: ATTENDING PHYSICIAN Surgery
DX: N39.0 Urinary tract infection, site not specified (principal)
CPT/HCPCS: 81003; 81015; 87077; 87086; 87186

== ENCOUNTER → 2025-01-06 13:19 | Outpatient (REF) | payer MEDICARE, OTHER, SELFPAY | LOC: SDSPAT 13:19 | PROVIDERS: ATTENDING PHYSICIAN Surgery; FAMILY PHYSICIAN Family Medicine | DX: N20.2 Calculus of kidney with calculus of ureter (principal); Z87.440 Personal history of urinary (tract) infections; Z01.818 Encounter for other preprocedural examination | CPT/HCPCS: 36415; 93005 ==

== ENCOUNTER 2025-01-11 05:56 | Day surgery (SDC) | payer MEDICARE, OTHER, SELFPAY ==
[2025-01-06 13:52] VITALS: BMI 38.7
[2025-01-11] VITALS (7 sets, daily range): BP systolic 109–152; BP diastolic 61–89; BMI 38.7
[2025-01-11] MEDS: NORMOSOL-R/PLASMALYTE-A 1000 IV (06:47)
[2025-01-11] MEDS: DETROL LA 4 MG PO (08:44)
[2025-01-15 23:30] LABS: Stone Analysis Mass 10 mg
== END 2025-01-11 09:35 | disposition home or self-care (01) ==
LOC: SDS 05:56
PROVIDERS: ATTENDING PHYSICIAN Surgery
DX: N20.2 Calculus of kidney with calculus of ureter (principal); Z87.440 Personal history of urinary (tract) infections
CPT/HCPCS: 52356; 74018; 76000; 82365; C1894; C2617

== ENCOUNTER → 2025-03-31 08:59 | Outpatient (REF) | payer MEDICARE, OTHER, SELFPAY | LOC: WDC 08:59 | PROVIDERS: ATTENDING PHYSICIAN Obstetrics & Gynecology; FAMILY PHYSICIAN Family Medicine | DX: Z12.31 Encounter for screening mammogram for malignant neoplasm of breast (principal) | CPT/HCPCS: 77063; 77067 ==

== ENCOUNTER → 2025-04-07 09:33 | Outpatient (REF) | payer MEDICARE, OTHER, SELFPAY | LOC: REG 09:33 | PROVIDERS: ATTENDING PHYSICIAN Surgery | DX: R78.81 Bacteremia (principal); N13.2 Hydronephrosis with renal and ureteral calculous obstruction | CPT/HCPCS: 81050; 82340; 82436; 82507; 83735; 83945; 83986; 84105; 84133; 84300; 84392; 84560 ==